=== PATIENT | female | born 1955 | race Caucasian/White ===

== ENCOUNTER 2019-12-08 09:29 | Outpatient (CLI) | payer MEDICARE ==
--- NOTE | 2019-12-08 12:07 | CT ---
CTA ABDOMEN AND PELVIS IN BILATERAL LWOER EXTREMITIES: INDICATION: Peripheral arterial disease. Non-healing right foot ulcer. Correlation is made to a CT abdomen and pelvis 05/12/2012. FINDINGS: Severe atherosclerotic vascular disease is seen involving the abdominal aorta. Peripheral calcificati on with peripheral thrombus is seen within the aorta. There is occlusion of the mid abdominal aorta just below the renal arteries. The abdominal aorta reconstitutes just below this area of occlusion presumably from retrograde flow t hrough the inferior mesenteric artery. The inferior mesenteric artery is patent. No significant stenosis is seen at the origin of the celiac artery or superior mesenteric artery. At herosclerotic change is seen throughout the superior mesenteric artery trunk without high-grade steno sis apparent. Both renal arteries are patent. There is an accessory left renal artery which is patent. No evidenc e of renal artery stenosis. Atherosclerotic calcification is seen in the distal abdominal aorta and at the bifurcation. There is moderate stenosis in both common iliac arteries beyond the bifurcation due to diffuse atheroscleroti c change. RIGHT LOWER EXTREMITY: The right internal and external iliacs are patent. Right common femoral artery shows atherosclerotic change and mild stenosis. The right profunda is patent. There is severe stenosis at the origin of the right superficial femoral artery. The right superficia l femoral artery shows diffuse disease throughout its course and severe stenosis throughout the thigh . This vessels occludes at Adrian's canal but does reconstitute distally. The popliteal shows diffu se disease and moderate stenosis. The popliteal trifurcates below the knee space. Three vessels are patent to the right ankle. LEFT LOWER EXTREMITY: The left internal and external iliacs are patent with diffuse atherosclerotic disease. Common femora l shows atherosclerotic calcification. The profunda is patent. Moderate stenosis at the origin of the left superficial femoral artery. Atherosclerotic disease thro ughout the left superficial femoral artery with multiple areas of high-grade stenosis. The left popliteal is small but patent. The left popliteal trifurcates below the knee and there is 3 -vessel runoff to the left ankle. SOFT TISSUES: The lung bases are clear. Liver, spleen, pancreas, adrenal glands, and kidneys unremarkable. The bowel loops are unremarkable. Uterus, adnexa, and urinary bladder unremarkable. The osseous structures are unremarkable. Degenerative changes in the spine. IMPRESSION: 1. Severe atherosclerotic disease involving the abdominal aorta. There is occlusion of the mid abdo ana aorta just inferior to the renal arteries. The abdominal aorta reconstitutes just below this o cclusion presumably due to retrograde flow from the inferior mesenteric artery. 2. Severe disease involving both common iliacs with moderate stenosis bilaterally. 3. Severe stenosis at the origin of the right superficial femoral artery. This vessel occludes at H unter's canal and reconstitutes at the popliteal artery as described. 4. Moderately severe disease throughout the left superficial femoral artery with multiple areas of h igh-grade stenosis. POS: AH
[2019-12-08] MEDS ORDERED: Iopamidol-370 76% 500 ML 1 ML ONE (16:28)
== END 2019-12-08 09:30 | disposition home or self-care (01) ==
LOC: BICCT 09:29
PROVIDERS: ATTEND Internal Medicine Cardiovascular Disease
DX: L97.919 Non-pressure chronic ulcer of unspecified part of right lower leg with unspecified severity (principal); I70.0 Atherosclerosis of aorta; I70.8 Atherosclerosis of other arteries
CPT/HCPCS: 75635; 82565; Q9967

== ENCOUNTER 2019-12-20 14:43 | Outpatient (CLI) | payer MEDICARE, OTHER ==
[2019-12-20 18:19] LABS: #Basophils 0.1 thou/uL (0.0-0.2); #Eosinphils 0.3 thou/uL (0.0-0.7); #Lymphocytes 2.4 thou/uL (1.20-3.40); #Monocytes 0.6 thou/uL (0.11-0.59); #Neutrophils 5.5 thou/uL (1.40-6.50); %Basophils 0.6 % (0.0-1.0); %Eosinophils 3.8 % (0.0-10.0); %Lymphocytes 27.4 % (21.0-51.0); %Monocytes 6.5 % (0.0-10.0); %Neutrophils 61.7 % (42.0-75.0); Mean Corpuscular HGB CONC 33.5 g/dL (32.0-36.0); Mean Corpuscular Hemoglobin 32.7 pg (27.0-31.0); Mean Corpuscular Volume 97.7 fL (78.0-98.0); Mean Platelet Volume 7.2 fL (7.4-10.4); Platelet Count 311 thou/uL (130-400); RBC Distribution Width 13.6 % (11.5-14.5); Red Blood Cell (RBC) Count 3.98 mill/uL (4.20-5.40); White Blood Cell (WBC) Count 8.9 thou/uL (4.8-10.8)
[2019-12-20 18:32] LABS: Anion Gap 13 mmol/L (10-20); BUN (Urea Nitrogen) 17 mg/dL (9.8-20.1); Calc. Creatinine Clearance 0 mL/min (70-130); Calcium 9.3 mg/dL (7.8-10.44); Carbon Dioxide 28 mmol/L (23-31); Chloride 99 mmol/L (98-107); Estimated GFR-MDRD 68; Glucose 115 mg/dL (80-115); Potassium 4.5 mmol/L (3.5-5.1); Sodium 135 mmol/L (136-145)
[2019-12-21 14:03] LABS: SARS-CoV-2 MS2 Positive; SARS-CoV-2 N Gene Negative; SARS-CoV-2 S Gene Negative; SARS-CoV-2 orf1ab Negative
== END 2019-12-20 14:44 | disposition home or self-care (01) ==
LOC: LABBT 14:43
PROVIDERS: ATTEND Thoracic Surgery (Cardiothoracic Vascular Surgery)
DX: Z01.818 Encounter for other preprocedural examination (principal); Z11.59 Encounter for screening for other viral diseases; I73.9 Peripheral vascular disease, unspecified
CPT/HCPCS: 80048; 85025; U0003; 87635; 93005; 93010

== ENCOUNTER 2019-12-20 16:30 | Inpatient (IN) | payer MEDICARE ==
[2019-12-24] MEDS ORDERED: Fentanyl 100 MCG/2 ML VIAL ONE ×4 (10:10→16:01)
[2019-12-24] MEDS ORDERED: Midazolam HCl 2 mg/2 ml Vial ONE (10:10)
[2019-12-24] MEDS ORDERED: Heparin 10,000 UNITS/1 ML VIAL 30,000 UNITS in Sodium Chloride 0.9% 1,000 ML FS SCH (10:15)
[2019-12-24] MEDS ORDERED: Labetalol HCl 100 MG/20 ML VIAL ONE (10:45)
[2019-12-24] MEDS ORDERED: PHENYLEPHRINE-NS 100 MCG/ML 10 ML SYRINGE ONE (10:45)
[2019-12-24] MEDS ORDERED: Metoprolol Tartrate 5 MG/5 ML VIAL ONE (10:45)
[2019-12-24] MEDS ORDERED: PROPOFOL 200 MG/20 ML VIAL ONE (10:45)
[2019-12-24] MEDS ORDERED: Rocuronium Bromide 10 MG/ML (10ML VIAL) ONE (10:45)
[2019-12-24] MEDS ORDERED: Dexamethasone 20 MG/5 ML VIAL ONE (10:45)
[2019-12-24] MEDS ORDERED: EPHEDRINE 25 MG/5 ML SYRINGE ONE ×4 (10:45→14:46)
[2019-12-24] MEDS ORDERED: Protamine Sulfate 50 MG/5 ML VIAL ONE (10:48)
[2019-12-24] MEDS ORDERED: Heparin 5,000 UNITS/ML VIAL ONE (10:48)
[2019-12-24] MEDS ORDERED: Fentanyl 250 MCG/5 ML VIAL ONE (10:55)
[2019-12-24] MEDS ORDERED: hydrALAZINE 20 MG/ML VIAL ONE (13:51)
[2019-12-24] MEDS ORDERED: SUGAMMADEX SODIUM 200 MG/2 ML VIAL ONE (14:20)
[2019-12-24] MEDS ORDERED: Albumin 5% 500 ML ONE (14:50)
[2019-12-24] MEDS ORDERED: Ondansetron PF 4 MG/2 ML Vial ONE (15:06)
[2019-12-24] MEDS ORDERED: Norepinephrine 8 MG/0.9% NS 250 ML IVPB PRN (15:15)
[2019-12-24] MEDS ORDERED: hydrALAZINE 20 MG/ML VIAL SLOW IVP PRN (15:15)
[2019-12-24] MEDS ORDERED: Fentanyl 100 MCG/2 ML VIAL SLOW IVP PRN (15:15)
[2019-12-24] MEDS ORDERED: Nitroglycerin 50 MG/250 ML BOT 250 ML IVPB PRN (15:15)
[2019-12-24] MEDS ORDERED: Acetaminophen 325 MG TAB PO PRN (15:15)
--- NOTE | 2019-12-24 15:36 | RAD ---
XR Chest 1 View History: Central line placement Comparison: None. Findings: Right subclavian central venous catheter tip projects over the right atrium. No pneumothora x. Impression: No pneumothorax post central line placement.
[2019-12-24 15:40] LABS: #Eosinphils 0.1 thou/uL (0.0-0.7); #Lymphocytes 1.2 thou/uL (1.20-3.40); #Monocytes 0.3 thou/uL (0.11-0.59); #Neutrophils 11.6 thou/uL (1.40-6.50); %Basophils 0.3 % (0.0-1.0); %Eosinophils 0.5 % (0.0-10.0); %Lymphocytes 9.1 % (21.0-51.0); %Monocytes 2.6 % (0.0-10.0); %Neutrophils 87.6 % (42.0-75.0); Hemoglobin 10.9 g/dL (12.0-16.0); Mean Corpuscular Hemoglobin 33.3 pg (27.0-31.0); Mean Corpuscular Volume 97.9 fL (78.0-98.0); Mean Platelet Volume 7.2 fL (7.4-10.4); Platelet Count 291 thou/uL (130-400); RBC Distribution Width 13.6 % (11.5-14.5); Red Blood Cell (RBC) Count 3.28 mill/uL (4.20-5.40); White Blood Cell (WBC) Count 13.3 thou/uL (4.8-10.8)
[2019-12-24 16:07] LABS: Anion Gap 14 mmol/L (10-20); BUN (Urea Nitrogen) 12 mg/dL (9.8-20.1); Calc. Creatinine Clearance 75 mL/min (70-130); Calcium 7.5 mg/dL (7.8-10.44); Carbon Dioxide 19 mmol/L (23-31); Chloride 106 mmol/L (98-107); Estimated GFR-MDRD 76; Glucose 328 mg/dL (80-115); Potassium 3.5 mmol/L (3.5-5.1); Sodium 135 mmol/L (136-145)
[2019-12-24] MEDS ORDERED: Calcium Chloride 1 GM/10 ML Abboject SYRINGE ONE (16:21)
[2019-12-24] MEDS: Lactated Ringer's 1,000 ML IV SCH ×2 (17:05→20:14)
[2019-12-24] MEDS: Fentanyl 100 MCG/2 ML VIAL SLOW IVP PRN ×3 (17:42→22:40)
[2019-12-24] MEDS: CEFAZOLIN 2 GM in Premix Bag 1 BAG IVPB SCH (17:44)
[2019-12-24 18:19] VITALS: BMI 26.1
[2019-12-24 19:54] LABS: Hemoglobin 10.7 g/dL (12.0-16.0); Platelet Count 287 thou/uL (130-400)
[2019-12-25] MEDS: Fentanyl 100 MCG/2 ML VIAL SLOW IVP PRN ×4 (00:25→07:21)
[2019-12-25] MEDS: CEFAZOLIN 2 GM in Premix Bag 1 BAG IVPB SCH ×2 (03:06→09:41)
[2019-12-25 04:08] LABS: #Lymphocytes 0.9 thou/uL (1.20-3.40); #Monocytes 0.7 thou/uL (0.11-0.59); #Neutrophils 7.5 thou/uL (1.40-6.50); %Basophils 0.1 % (0.0-1.0); %Eosinophils 0.2 % (0.0-10.0); %Monocytes 8.1 % (0.0-10.0); %Neutrophils 81.6 % (42.0-75.0); Hemoglobin 9.9 g/dL (12.0-16.0); Mean Corpuscular HGB CONC 32.2 g/dL (32.0-36.0); Mean Corpuscular Hemoglobin 31.4 pg (27.0-31.0); Mean Corpuscular Volume 97.5 fL (78.0-98.0); Mean Platelet Volume 7.6 fL (7.4-10.4); Platelet Count 250 thou/uL (130-400); RBC Distribution Width 13.6 % (11.5-14.5); Red Blood Cell (RBC) Count 3.15 mill/uL (4.20-5.40); White Blood Cell (WBC) Count 9.2 thou/uL (4.8-10.8)
[2019-12-25 04:40] LABS: Anion Gap 15 mmol/L (10-20); BUN (Urea Nitrogen) 9 mg/dL (9.8-20.1); Calc. Creatinine Clearance 76 mL/min (70-130); Calcium 8.6 mg/dL (7.8-10.44); Carbon Dioxide 20 mmol/L (23-31); Chloride 103 mmol/L (98-107); Estimated GFR-MDRD 72; Glucose 179 mg/dL (80-115); Potassium 3.9 mmol/L (3.5-5.1); Sodium 134 mmol/L (136-145)
--- NOTE | 2019-12-25 06:10 | OP ---
DATE OF PROCEDURE: 12/24/2019 PREOPERATIVE DIAGNOSIS: Gangrene of right toe with rest pain. PROCEDURE PERFORMED: Aorta to left femoral and right external iliac artery bypass with a 12 x 7 mm Hemashield graft. ETHANOL OPERATOR: Dr. Casiano. TRANSFUSION: None. ESTIMATED BLOOD LOSS: 1000, autotransfusion about 480 mL. DESCRIPTION OF PROCEDURE: After adequate anesthesia had been obtained, the patient had a midline laparotomy performed after prepping and draping. The bowel was rotated to the right and the retroperitoneum incised from the iliac bifurcation up to the renal vein and the takeoff of the left renal artery was visualized. Aorta was heavily calcified. Lumbar vessels were clipped and the inferior mesenteric artery was ligated. Right external iliac artery was mobilized and loop placed and attention was then turned to the left external iliac artery, which was calcified and this was not appreciated on preoperative CT scan. For this reason, the left groin was exposed. A tunnel created in the retroperitoneum and a crossing vein at the inguinal ligament was clipped due to bleeding. Following heparinization, the aorta was clamped at the level of the left renal artery. A clamp was placed on the left external iliac artery and a loop was tightened on the right external iliac artery. The aorta was then transected just below the inferior mesenteric artery and decalcified distally to allow a running 3-0 Prolene suture to be used to close the distal aorta. Additional sutures were required to control bleeding from this area. The aorta was then incised more proximally and the area of complete occlusion was seen, which was heavily calcified into the lumen and then the small amount of thrombus probably that occurred when the aorta occluded. Proximally, the aorta was decalcified enough to do a proximal anastomosis and the 12-mm graft was anastomosed in a running 4-0 Prolene suture. Following this, the left limb of the graft was brought into the left groin and the right limb of the graft was tunneled posterior to the right ureter and anastomosed to the external iliac artery and flow was then restored after appropriate flushing. Attention was then turned to the left common femoral artery, which was opened and the superficial and profunda controlled with loops. Anastomosis was then completed and then flow was restored proximally and then distally. Protamine was given to reverse the heparin, and after a good amount of time was taken obtaining hemostasis, the retroperitoneum was closed over the aortic graft as well as the right and left limbs. Abdomen was then inspected and the bowel returned into the abdominal cavity and the fascia was then closed with a running #2 PDS suture, double stranded. Subcutaneous tissue and skin were closed in layers. The patient is to be taken to the recovery room in guarded condition. Job ID: [id number]
[2019-12-25] MEDS: Ondansetron PF 4 MG/2 ML Vial IVP PRN ×2 (06:14→14:25)
--- NOTE | 2019-12-25 07:28 | RAD ---
SINGLE VIEW CHEST: Date: 12/25/2019 COMPARISON: 12/24/2019. HISTORY: Aortobifemoral bypass. FINDINGS: Single view of the chest shows a normal sized cardiomediastinal silhouette with atherosclerotic calci fications in the aorta. Atelectasis is seen in the left lung base. There is no evidence of consolidat ion, mass, or pleural effusion. IMPRESSION: Left basilar atelectasis. POS: EAA
[2019-12-25] MEDS ORDERED: Dextrose 5% in Water 1,000 ML IV PRN (08:16)
[2019-12-25] MEDS ORDERED: Dextrose 50% Abboject 50 ML SYRINGE SLOW IVP PRN (08:16)
[2019-12-25] MEDS ORDERED: diphenhydrAMINE 50 MG/ML VIAL IM PRN (08:28)
[2019-12-25] MEDS ORDERED: Promethazine HCl 25 MG/ML VIAL IM PRN (08:28)
[2019-12-25] MEDS ORDERED: Ondansetron PF 4 MG/2 ML Vial IVP PRN (08:28)
[2019-12-25] MEDS ORDERED: diphenhydrAMINE 50 MG/ML VIAL IVP PRN (08:28)
[2019-12-25] MEDS ORDERED: diphenhydrAMINE 25 MG CAP PO PRN (08:28)
[2019-12-25] MEDS ORDERED: Naloxone HCl 0.4 mg/ml Vial IV PRN (08:28)
[2019-12-25] MEDS ORDERED: Communication Order-Pharmacy FS PRN (08:30)
[2019-12-25] MEDS: Lactated Ringer's 1,000 ML IV SCH ×3 (08:44→22:09)
[2019-12-25] MEDS ORDERED: Lisinopril 5 MG TAB PO SCH (09:00)
[2019-12-25] MEDS: Metoprolol Tartrate 25 MG TAB PO SCH ×2 (09:06→20:40)
[2019-12-25] MEDS: HYDROmorphone 10 mg/100 ml CADD IVPB PRN (09:35)
--- NOTE | 2019-12-25 10:03 | CON ---
DATE OF CONSULTATION: HISTORY OF PRESENT ILLNESS: Gabrielle Meyers is a 64-year-old female, status post bilateral femoral-popliteal surgery. She is in the ICU, postoperative pain, reason for consult. She is a smoker of two pack a day for most of her life. She just quit smoking 5 days ago. She has had significant pain in the right leg and a gangrenous toe. She underwent surgery yesterday evening. She also had significant back issues, chronic back pain. This morning, she denies any difficulty breathing. Does complain of significant pain. PAST MEDICAL HISTORY: COPD, tobacco abuse, hypertension, diabetes, peripheral vascular disease. PAST SURGICAL HISTORY: Otherwise included previous back surgery, thumb surgery, previous laparotomy. HOME MEDICATIONS: Includes; 1. Tramadol 50. 2. Metformin 500. 3. Metoprolol 25 b.i.d. 4. Lisinopril. 5. Celexa 10. 6. Plavix 75. 7. Atorvastatin 20. ALLERGIES: CODEINE, IBUPROFEN, ASPIRIN. SOCIAL HISTORY: Did construction and presently retired. REVIEW OF SYSTEMS: Otherwise, 10-point negative. PHYSICAL EXAMINATION: VITAL SIGNS: Her saturations are 96% on room air, blood pressure 137/66, pulse of 109, respiratory rate 27. CHEST: No wheezing. No crackles. CARDIAC: Normal S1, S2. No gallops. ABDOMEN: Soft. EXTREMITIES: Revealed gangrenous right first toe. LABORATORY DATA: White count is 9000, H and H 13 and 30, platelet count 250. Lytes are normal. Blood sugar 179. X-ray was clear. ASSESSMENT: 1. Status post aorto left femoral right iliac bypass. 2. Gangrenous right toe with pain. 3. Tobacco abuse, chronic obstructive pulmonary disease. 4. Chronic back pain, hypertension, diabetes. PLAN: Pulmonary. We are going to follow while in the ICU. I agree with present neb treatments, supportive care, pain relief. DVT prophylaxis. Consultation note, 70 minutes, 50% direct patient care. Job ID: [id number]
[2019-12-25] MEDS: Insulin Regular 300 UNITS/3 ML VIAL SC PRN ×3 (12:45→21:57)
[2019-12-26 03:17] LABS: #Lymphocytes 1.6 thou/uL (1.20-3.40); #Monocytes 1.1 thou/uL (0.11-0.59); #Neutrophils 9.7 thou/uL (1.40-6.50); %Eosinophils 0.2 % (0.0-10.0); %Monocytes 8.6 % (0.0-10.0); %Neutrophils 78.1 % (42.0-75.0); Hemoglobin 9.9 g/dL (12.0-16.0); Mean Corpuscular HGB CONC 33.8 g/dL (32.0-36.0); Mean Corpuscular Volume 97.6 fL (78.0-98.0); Mean Platelet Volume 7.1 fL (7.4-10.4); Platelet Count 248 thou/uL (130-400); RBC Distribution Width 13.6 % (11.5-14.5); White Blood Cell (WBC) Count 12.4 thou/uL (4.8-10.8)
[2019-12-26 03:39] LABS: Anion Gap 12 mmol/L (10-20); BUN (Urea Nitrogen) 13 mg/dL (9.8-20.1); Calc. Creatinine Clearance 73 mL/min (70-130); Calcium 8.6 mg/dL (7.8-10.44); Carbon Dioxide 24 mmol/L (23-31); Chloride 101 mmol/L (98-107); Estimated GFR-MDRD 68; Glucose 132 mg/dL (80-115); Potassium 4.1 mmol/L (3.5-5.1); Sodium 133 mmol/L (136-145)
[2019-12-26] MEDS: HYDROmorphone 10 mg/100 ml CADD IVPB PRN (05:30)
--- NOTE | 2019-12-26 09:25 | PRG ---
DATE OF SERVICE: 12/26/2019 SUBJECTIVE: This morning, she is awake, alert, responsive, less pain. OBJECTIVE: VITAL SIGNS: O2 sats on room air, blood pressure 148/79, pulse CHEST: No wheezing or crackles. CARDIAC: Normal S1, S2. No gallops. ABDOMEN: No masses. LABORATORY DATA: Unremarkable. IMPRESSION AND PLAN: Chronic obstructive pulmonary disease, status post aortobifem. She is stable to be transferred out of the ICU. Pulmonary Critical Care will follow at a distance. Please call if needed. Job ID: [id number]
[2019-12-26] MEDS: Polyethylene Glycol 3350 17 GM Packet PO SCH (09:37)
[2019-12-26] MEDS: Metoprolol Tartrate 25 MG TAB PO SCH ×2 (09:37→21:10)
[2019-12-26] MEDS: Insulin Regular 300 UNITS/3 ML VIAL SC PRN ×2 (12:31→18:07)
[2019-12-26] MEDS: Lactated Ringer's 1,000 ML IV SCH (12:31)
[2019-12-26] MEDS ORDERED: Lactated Ringer's 1,000 ML IV SCH (19:00)
[2019-12-27 06:50] LABS: Anion Gap 14 mmol/L (10-20); BUN (Urea Nitrogen) 8 mg/dL (9.8-20.1); Calc. Creatinine Clearance 99 mL/min (70-130); Calcium 8.5 mg/dL (7.8-10.44); Carbon Dioxide 24 mmol/L (23-31); Chloride 100 mmol/L (98-107); Estimated GFR-MDRD Greater than 90; Glucose 129 mg/dL (80-115); Potassium 3.9 mmol/L (3.5-5.1); Sodium 134 mmol/L (136-145)
[2019-12-27] MEDS ORDERED: Metoprolol Tartrate 50 MG TAB PO SCH (10:00)
[2019-12-27] MEDS: Polyethylene Glycol 3350 17 GM Packet PO SCH (10:18)
[2019-12-27] MEDS: Metoprolol Tartrate 25 MG TAB PO SCH (10:46)
[2019-12-27] MEDS: HYDROmorphone 10 mg/100 ml CADD IVPB PRN (11:33)
[2019-12-27] MEDS: Acetaminophen 500 MG TAB PO SCH ×3 (13:28→23:39)
[2019-12-27] MEDS: Metoprolol Tartrate 50 MG TAB PO SCH (20:32)
[2019-12-28] MEDS: Acetaminophen 500 MG TAB PO SCH ×4 (05:07→18:43)
[2019-12-28] MEDS ORDERED: Lisinopril 5 MG TAB PO SCH (09:00)
[2019-12-28] MEDS: Clopidogrel Bisulfate 75 MG TAB PO SCH (09:52)
[2019-12-28] MEDS: Metoprolol Tartrate 50 MG TAB PO SCH ×2 (09:52→20:13)
[2019-12-28] MEDS: Polyethylene Glycol 3350 17 GM Packet PO SCH (09:52)
[2019-12-28] MEDS: HYDROmorphone 10 mg/100 ml CADD IVPB PRN (18:14)
[2019-12-29] MEDS: Acetaminophen 500 MG TAB PO SCH ×4 (00:15→17:42)
[2019-12-29] MEDS ORDERED: Lisinopril 10 MG TAB PO SCH (06:08)
[2019-12-29] MEDS: Clopidogrel Bisulfate 75 MG TAB PO SCH (09:32)
[2019-12-29] MEDS: Furosemide 40 MG TAB PO SCH (09:33)
[2019-12-29] MEDS: Polyethylene Glycol 3350 17 GM Packet PO SCH (09:34)
[2019-12-29] MEDS: traMADol HCl 50 MG TAB PO PRN ×2 (09:34→17:43)
[2019-12-29] MEDS: Metoprolol Tartrate 50 MG TAB PO SCH ×2 (09:34→20:37)
[2019-12-30] MEDS: Acetaminophen 500 MG TAB PO SCH ×2 (00:12→05:57)
[2019-12-30] MEDS: Furosemide 40 MG TAB PO SCH (05:58)
[2019-12-30] MEDS ORDERED: Acetaminophen 325 MG TAB PO PRN (06:07)
[2019-12-30 07:52] VITALS: TEMP 98.1
[2019-12-30] MEDS ORDERED: Lisinopril 5 MG TAB PO SCH (09:00)
[2019-12-30] MEDS: Polyethylene Glycol 3350 17 GM Packet PO SCH (09:03)
[2019-12-30] MEDS: Clopidogrel Bisulfate 75 MG TAB PO SCH (09:03)
[2019-12-30] MEDS: traMADol HCl 50 MG TAB PO PRN (09:05)
[2019-12-30] MEDS: Metoprolol Tartrate 50 MG TAB PO SCH (09:05)
[2019-12-30 13:39] VITALS: BP 156/79
--- NOTE | 2019-12-31 07:20 | DIS ---
DATE OF ADMISSION: 12/24/2019 DATE OF DISCHARGE: 12/30/2019 The patient was admitted on 12/23, underwent an aortobifemoral bypass. Her postoperative course was relatively uneventful, although, she did have some urinary retention and required replacement of a Villagomez catheter. She was tolerating a diet and had bowel movement, urinating well, and her incisions were healing nicely. Her pain in her right 4th toe had improved and she will be discharged home on her admitting medicines including metoprolol, lisinopril/HCTZ, Plavix, and will receive a prescription for tramadol. Discharge and followup instructions have been given with particular attention to wound care. Job ID: [id number]
== END 2019-12-30 15:50 | disposition home or self-care (01) | DRG 271 ==
LOC: SURG A 12-24 09:17 → CCU 12-24 17:10 → SURG A 12-26 10:44
PROVIDERS: ADMIT Thoracic Surgery (Cardiothoracic Vascular Surgery); ATTEND Thoracic Surgery (Cardiothoracic Vascular Surgery)
PROC: 041 Lower Arteries, Bypass (ICD-10-PCS; principal; 2019-12-24)
DX: E11.52 Type 2 diabetes mellitus with diabetic peripheral angiopathy with gangrene (principal); I70.261 Atherosclerosis of native arteries of extremities with gangrene, right leg; I10 Essential (primary) hypertension; E78.5 Hyperlipidemia, unspecified; J44.9 Chronic obstructive pulmonary disease, unspecified; F32.9 Major depressive disorder, single episode, unspecified; G89.29 Other chronic pain; Z87.891 Personal history of nicotine dependence
CPT/HCPCS: 36415; 36416; 71045; 80048; 82805; 85025; 86850; 86900; 86901; 94640; J0360; J0690; J1100; J1642; J1644; J1815; J2250; J2405; J2704; J2720; J3010; J7620; P9045

== ENCOUNTER 2022-08-05 10:00 | Outpatient (CLI) | payer MEDICARE | END 2022-08-05 10:01 | disposition home or self-care (01) | LOC: RAD-FRANK 10:00 | PROVIDERS: ATTEND Nurse Practitioner Family | DX: R07.89 Other chest pain (principal) | CPT/HCPCS: 71046 ==